=== PATIENT | female | born 1955 | race African-American/Black ===

== ENCOUNTER 2021-04-30 09:37 | Inpatient (IN) | payer MEDICARE ==
[~2021-04-30] VITALS: Ht 160 cm; Wt 68.7 kg
[2021-04-30 09:43] VITALS: BP 122/87
[2021-04-30] MEDS ORDERED: MAPAP500 MG PO (09:54)
[2021-04-30] MEDS ORDERED: DEXAMETHASONE 44 M1 PO (09:56)
[2021-04-30] MEDS ORDERED: SM CALCIUM PO (09:56)
[2021-04-30] MEDS ORDERED: NEURONTIN 300M300 M2 PO (09:57)
[2021-04-30] MEDS ORDERED: MARINOL 2.5 MG2.5 M1 PO (09:57)
[2021-04-30] MEDS ORDERED: HYDROCODON-ACE1 EAC5 PO (09:58)
[2021-04-30] MEDS ORDERED: AGONEAZE 2.5%-1 EACH (09:58)
[2021-04-30] MEDS ORDERED: ONDANSETRON ODT4 MG PO (09:59)
[2021-04-30 10:23] LABS: ABSOLUTE MONOCYTES 0.1 thou/uL (0.0-1.2); WBC 2.4 thou/uL (4.0-11.0)
[2021-04-30 10:25] LABS: ABSOLUTE BASOPHILS 0.1 thou/uL (0.0-0.2); ABSOLUTE LYMPHOCYTES 1.4 thou/uL (0.8-5.3); ABSOLUTE NEUTROPHILS 0.8 thou/uL (1.6-8.1); EOSINOPHILS 1.3 %; HEMATOCRIT 27.2 % (37.0-47.0); LYMPHOCYTES 59.4 %; MCH 31.8 pg (26.0-34.0); MCHC 33.1 g/dL (28.0-37.0); MCV 96.3 fL (80.0-100.0); MONOCYTES 2.4 %; NUCLEATED RBCS 1 /100WBC; PLATELET COUNT* 133 thou/uL (150-400); POLYS 33.9 %; RBC 2.83 mil/uL (4.20-5.00); RDW-CV 24.8 % (10.5-14.5)
[2021-04-30 10:34] LABS: CALCIUM 7.7 mg/dL (8.5-10.1); CREATININE 0.7 mg/dL (0.6-1.3); POTASSIUM 3.4 mmol/L (3.5-5.1)
[2021-04-30 10:48] LABS: TOTAL BILIRUBIN 5.6 mg/dL (<0.1-1.0)
[2021-04-30 11:07] LABS: ANISOCYTOSIS 3+; PLATELET ESTIMATE ADEQUATE; TARGET CELLS 1+
--- NOTE | 2021-04-30 15:40 | EKG ---
[place] [address] ELECTROCARDIOGRAM REPORT Name: SHAE HERNANDEZ Room: [place] [address] ADM IN [facility].#: [id number] Admission: 04/30/21 Attend Phys: Yunior Ivy Discharge: Date of : 53 Date of Service: 04/30/21 1039 Report #: [id number] THIS REPORT FOR: //name// [facility] ED Test Date: 2021-04-30 Test Time: 10:39:32 Pat Name: SHAE HERNANDEZ Department: Room: [facility] Gender: F Medical Radiation Therapist: PB : 1955 Requested By: Skyler High Order Number: [id number] MD: Jack Pal Measurements Intervals [place] Rate: 105 P: 46 AK: 144 QRS: 3 QRSD: 91 T: 108 QT: 422 QTc: 558 Interpretive Statements Sinus tachycardia Nonspecific T abnrm, anterolateral leads Prolonged QT interval No previous ECG available for comparison Electronically Signed On 04-30-2021 15:40:22 CDT by Jack Pal [email or web address] <ELECTRONICALLY SIGNED> By: Jack Pal MD, FACC 04/30/21 1540 1039 1039 Jack Pal MD, [facility] /EPI
[2021-04-30 16:37] LABS: URINE BLOOD TRACE (Negative); URINE CLARITY CLEAR; URINE COLOR YELLOW; URINE GLUCOSE-RANDOM NEGATIVE (Negative); URINE KETONES 1+ (Negative); URINE LEUKOCYTES-REFLEX NEGATIVE (Negative); URINE NITRITE-REFLEX NEGATIVE (Negative); URINE PROTEIN 1+ (Negative); URINE SPECIFIC GRAVITY <= 1.005 (1.005-1.030)
[2021-04-30 16:41] LABS: ICTOTEST (BILI CONFIRMATORY) Positive (Negative); URINE BILIRUBIN 2+ (Negative)
[2021-04-30 16:46] LABS: BACTERIA-REFLEX 1-9 Few /HPF (None Seen); CASTS None Seen /LPF (None Seen); CRYSTALS None Seen /LPF (None Seen); SQUAMOUS >10 Many /LPF (0-3); URINE RBC 0-2 Rare /HPF (0-2); URINE WBC-REFLEX 0-5 Rare /HPF (0-5)
[2021-04-30 17:17] VITALS: BP 124/61
[2021-04-30 21:15] VITALS: BP 118/67
[2021-05-01] VITALS (9 sets, daily range): BP systolic 120–135; BP diastolic 59–82
[2021-05-01 06:27] LABS: ALBUMIN 1.7 g/dL (3.4-5.0); CALCIUM 6.9 mg/dL (8.5-10.1); CREATININE 0.6 mg/dL (0.6-1.3); POTASSIUM 3.4 mmol/L (3.5-5.1); TOTAL BILIRUBIN 4.3 mg/dL (<0.1-1.0); TOTAL PROTEIN 5.2 g/dL (6.4-8.2)
[2021-05-01 06:30] LABS: HEMOGLOBIN 7.9 gm/dL (12.0-15.0)
[2021-05-01 06:35] LABS: HEMATOCRIT 23.6 % (37.0-47.0); MCH 31.9 pg (26.0-34.0); MCHC 33.5 g/dL (28.0-37.0); MCV 95.3 fL (80.0-100.0); MPV 8.4 fl. (7.2-11.1); NUCLEATED RBCS 12 /100WBC; PLATELET COUNT* 115 thou/uL (150-400); RBC 2.48 mil/uL (4.20-5.00); RDW-CV 24.8 % (10.5-14.5)
[2021-05-01 06:42] LABS: WBC 1.3 thou/uL (4.0-11.0)
[2021-05-01 08:18] LABS: ABSOLUTE LYMPHOCYTES 0.5 thou/uL (0.8-5.3); ABSOLUTE MONOCYTES 0.2 thou/uL (0.0-1.2); ABSOLUTE NEUTROPHILS 0.6 thou/uL (1.6-8.1); ANISOCYTOSIS 2+; PLATELET ESTIMATE ADEQUATE; TARGET CELLS 2+
--- NOTE | 2021-05-01 10:53 | NUR ---
MARIA LUISA HOLM, PT'S SISTER HAS PERMISSION TO RECEIVE INFORMATION ABOUT PATIENT.
--- NOTE | 2021-05-01 13:15 | NUR ---
ER PATIENT TO 206 VIA BED TELEPHONE REPORT GIVEN PRIOR TO ARRIVAL PATIENT ORIENTED TO ROOM AND CALLIGHT DENIES PAIN AT THIS TIME ASSUMED PATIENT CARE
--- NOTE | 2021-05-01 16:19 | NUR ---
CM S/W PT WHO INDICATED SHE LIVES HOME WITH . COMPLETED SKILLED STAY AT [facility] ABOUT WEEK AGO, SHE WAS THERE FOR ABOUT A WEEK TO A WEEK AND A HALF. PT HAS NO DMES. PT'S SPOUSE ASSIST PT WITH ADLS. PT INDICATED SHE MAY HAVE HOME HEALTH B/C A "THERAPIST NAME MARIA LUISA" CAME TO THE HOME. PT SISTER WHO WAS AT BEDSIDE STATED SHE DIDNT THINK PT WAS RECEIVING HH, BUT ADVISED CM TO CONTACT PT , [facility] AT [phone].CM ATTEMPTED TO CONTACT [facility], BUT THERE WAS NO ANSWER. CM TO CONT TO FOLLOW
[2021-05-02 04:00] VITALS: BP 139/67
--- NOTE | 2021-05-02 05:36 | NUR ---
PT ALERT AND ORIENTED, SOME NAUSEA OFF AND ON, SCHEDULED ZOFRAN GIVEN. NO PAIN REPORTED. SHE SAID SHE HAD SOME DISCOMFORT IN HER STERNUM AREA LIKE WATER WAS STUCK AFTER DRINKING IT. I HAD HER ELEVATE HER HEAD. SHE HAS USED BEDPAN ALL SHIFT AND NOT GOT UP OUT OF BED. SHE HAS BEEN STEADY SINUS TACH ON MONITOR ALL SHIFT. SHE REPORTS SHE HAS NOT TOLERATED FOOD BUT HAS BEEN OK WITH SIPS OF WATER AND ICE CHIPS. SHE RECEIVED ALL MEDS/ABX/FLUIDS SCHEDULED.
[2021-05-02 12:00] VITALS: BP 123/67
--- NOTE | 2021-05-02 15:23 | NUR ---
CM ATTMEPTED 2X TODAY TO CONTACT PT TO CONFIRM IF PT IS CURRENT WITH ANY HH AGENCIES, THE PT BELIEVES SHE IS BUT COULDNT REMEMBER .
[2021-05-02 16:00] VITALS: BP 120/59
[2021-05-02 16:20] LABS: ABSOLUTE NEUTROPHILS 0.1 thou/uL (1.6-8.1); HEMOGLOBIN 8.2 gm/dL (12.0-15.0); MPV 8.8 fl. (7.2-11.1)
[2021-05-02 16:22] LABS: ABSOLUTE LYMPHOCYTES 1.4 thou/uL (0.8-5.3); ABSOLUTE MONOCYTES 0.3 thou/uL (0.0-1.2); EOSINOPHILS 0.2 %; HEMATOCRIT 24.8 % (37.0-47.0); LYMPHOCYTES 75.9 %; MCH 31.9 pg (26.0-34.0); MCHC 33.1 g/dL (28.0-37.0); MCV 96.4 fL (80.0-100.0); NUCLEATED RBCS 283 /100WBC; PLATELET COUNT* 106 thou/uL (150-400); POLYS 4.9 %; RBC 2.57 mil/uL (4.20-5.00); RDW-CV 25.2 % (10.5-14.5)
[2021-05-02 16:34] LABS: ALBUMIN 1.7 g/dL (3.4-5.0); CALCIUM 6.8 mg/dL (8.5-10.1); CREATININE 0.9 mg/dL (0.6-1.3); POTASSIUM 4.1 mmol/L (3.5-5.1); TOTAL BILIRUBIN 4.1 mg/dL (<0.1-1.0); TOTAL PROTEIN 5.5 g/dL (6.4-8.2)
[2021-05-02 16:37] LABS: WBC 1.8 thou/uL (4.0-11.0)
--- NOTE | 2021-05-02 18:54 | NUR ---
PT HAS BEEN VERY SOMNOLENT TODAY DESPITE HAVING MANY VISITORS. SHE IS ON IVF AND ANTIBIOTICS, SHE HAD ONE DOSE OF PAIN MEDS. SHE DENIES PAIN, NAUSEA FOR THE MOST PART BUT DOES NOT WANT TO ADVANCE DIET DUE TO FEAR OF VOMITING. PT IS WEAK AND USING BEDPAN TO VOID. CRITICAL WBC CALLED TO DR IGLESIAS WITH RETURN CALL, NO ORDERS GIVEN DUE TO EXPECTED LAB VALUE DUE TO CANCER TREATMENT. CALL LIGHT IN REACH, BED ALARM ON FOR SAFETY
[2021-05-03 00:06] VITALS: BP 129/60
[2021-05-03 03:11] LABS: HEMOGLOBIN 7.5 gm/dL (12.0-15.0)
[2021-05-03 03:13] LABS: HEMATOCRIT 22.3 % (37.0-47.0); MCH 32.2 pg (26.0-34.0); MCHC 33.6 g/dL (28.0-37.0); MCV 95.8 fL (80.0-100.0); MPV 8.8 fl. (7.2-11.1); NUCLEATED RBCS 245 /100WBC; PLATELET COUNT* 93 thou/uL (150-400); RBC 2.33 mil/uL (4.20-5.00); RDW-CV 25.1 % (10.5-14.5); WBC 2.2 thou/uL (4.0-11.0)
[2021-05-03 03:34] LABS: ALBUMIN 1.5 g/dL (3.4-5.0); CALCIUM 6.3 mg/dL (8.5-10.1); CREATININE 1.2 mg/dL (0.6-1.3); TOTAL BILIRUBIN 3.9 mg/dL (<0.1-1.0); TOTAL PROTEIN 4.9 g/dL (6.4-8.2)
[2021-05-03 04:08] VITALS: BP 134/60
--- NOTE | 2021-05-03 05:07 | NUR ---
PT ALERT AND ORIENTED, ROOM AIR, UP STANDBY ASSIST (DID NOT GET UP THIS SHIFT) SHE RECEIVED ALL MEDS/FLUIDS/ABX ORDERED. DID NOT REPORT ANY NAUSEA OR PAIN. CONTINUED WITH ICE CHIPS AND SIPS OF WATER. STILL NOT A GOOD APPETITE. SHE WAS SLEEPING MOST OF THE NIGHT. WILL CONTINUE TO MONITOR.
[2021-05-03 07:35] LABS: ABSOLUTE LYMPHOCYTES 1.1 thou/uL (0.8-5.3); ABSOLUTE MONOCYTES 0.2 thou/uL (0.0-1.2); ABSOLUTE NEUTROPHILS 0.9 thou/uL (1.6-8.1); ATYPICAL LYMPHS 2 %; PLATELET ESTIMATE DECREASED
[2021-05-03 07:36] LABS: HYPOCHROMASIA 2+; POLYCHROMASIA Occasional
[2021-05-03 07:37] LABS: ANISOCYTOSIS 3+
[2021-05-03 07:38] LABS: BURR CELLS Occasional; MACROCYTES 2+; TARGET CELLS Occasional
[2021-05-03 07:39] LABS: MICROCYTES Occasional
[2021-05-03 08:00] VITALS: BP 129/57
[2021-05-03 10:43] LABS: MAGNESIUM 1.8 mg/dL (1.8-2.4); PHOSPHORUS* 1.5 mg/dL (2.5-4.9)
[2021-05-03 12:05] VITALS: BP 120/64
--- NOTE | 2021-05-03 12:52 | NUR ---
POC IS FOR PT TO REMAIN HOSPITALIZED OVER THE WEEKEND, SHE HAS NOT PROGRESSED TOWARDS GOALS.
[2021-05-03 16:58] VITALS: BP 146/58
--- NOTE | 2021-05-03 18:50 | NUR ---
ASSUMED CARE OF PT AT 0730. PT A&0X4, COMPLAINED OF GENERALIZED ABDOMINAL PAIN-TREATED WITH PRN DILAUDID WITH COMPLETE RELIEF. TRACING ST ON THE SKIN FORMER. RATE IN THE 110'S. ON RA SAT MID 90'S. DENIES ANY SHORTNESS OF BREATH. LACTIC TRENDING UP, ORDERS RECEIVED FOR NEPHRO CONSULT, SODIUM BICARB TABS AND 1L NC BOLUS. ONCOLOGY HERE TO SEE PT. ORDERS RECEIVED FOR DNR AND TO ADVANCE DIET TOLERATED. AM ASSESSMENT CHARTED. MEDICATIONS PER DEC. PT REPOSITIONS SELF WITH REMINDERS. HOURLY ROUNDING OBSERVED. BED IN LOW POSITION. BED ALARM IN PLACE. FALL PRECAUTIONS IN PLACE. CALL LIGHT WITHIN REACH. WILL CONTINUE PLAN OF CARE.
[2021-05-04 04:38] VITALS: BP 123/53
--- NOTE | 2021-05-04 05:24 | NUR ---
ASSUMED CARE OF PATIENT AT 1930. AT INITIAL ASSESSMENT PATIENT OBSERVED TO BE SHORT OF BREATH WHILE SPEAKING. APPLIED 2L OXYGEN VIA NC AND STOPPED FLUIDS. AT APPOXIMATELY 2200 PATIENT'S FAMILY CALLED UPSET STATING THAT THE PATIENT TOLD THEM SHE WASN'T GOING TO MAKE IT THROUGH THE NOC. ADVISED FAMILY THAT PATIENT VITALS WERE GOOD, NO IMMINENT CONCERNS, AND WOULD UPDATE THEM IF PATIENT STATUS CHANGED. ADMINISTERED PRN PAIN MEDICATION AND PATIENT APPEARED TO REST COMFORTABLY THE REMAINDER OF SHIFT
[2021-05-04 07:30] VITALS: BP 113/44
[2021-05-04 10:26] VITALS: BP 117/53
[2021-05-04 12:00] VITALS: BP 102/49
[2021-05-04 12:32] LABS: BE -17.9 mmol/L (-2 to +3); HEMOGLOBIN 7.5 gm/dL (12.0-15.0); PCO2 VENOUS 18.1 mmHg (41.0-51.0); PO2 VENOUS 133.7 mmHg (35.0-45.0)
[2021-05-04 12:34] LABS: ABSOLUTE BASOPHILS 0.1 thou/uL (0.0-0.2); ABSOLUTE LYMPHOCYTES 2.4 thou/uL (0.8-5.3); ABSOLUTE MONOCYTES 1.2 thou/uL (0.0-1.2); BASOPHILS 2.4 %; EOSINOPHILS 0.5 %; HEMATOCRIT 23.7 % (37.0-47.0); MCH 32.1 pg (26.0-34.0); MCHC 31.8 g/dL (28.0-37.0); MONOCYTES 25.3 %; MPV 9.3 fl. (7.2-11.1); NUCLEATED RBCS 184 /100WBC; PLATELET COUNT* 87 thou/uL (150-400); POLYS 20.8 %; RBC 2.34 mil/uL (4.20-5.00); RDW-CV 25.5 % (10.5-14.5); WBC 4.6 thou/uL (4.0-11.0)
[2021-05-04 12:52] LABS: ALBUMIN 1.4 g/dL (3.4-5.0); CALCIUM 6.8 mg/dL (8.5-10.1); CREATININE 1.8 mg/dL (0.6-1.3); POTASSIUM 5.1 mmol/L (3.5-5.1); TOTAL BILIRUBIN 5.4 mg/dL (<0.1-1.0)
[2021-05-04 16:00] VITALS: BP 110/39
[2021-05-04 17:17] VITALS: BP 103/40
--- NOTE | 2021-05-04 18:39 | NUR ---
ASSUMED CARE OF PT AT 0730. PT A&0X4 UPON BEGINNING OF SHIFT-CONVERSATIONAL, ANXIOUS. NEPHROLOGY HERE TO SEE PT. ORDERS RECEIVED FOR PRN XANAX-GIVEN ALONG WITH DILAUDID FOR PAIN-PT HAS REMAINED SEDATED AND ONLY RESPONSIVE TO STERNAL RUB THIS EVENING. MULTIPLE FAMILY MEMBERS IN AND OUT OF PT ROOM. DR IGLESIAS SPOKE WITH FAMILY IN ROOM AND SPOKE WITH DAUGHTER OVER THE PHONE. . CRITICAL LAB RESULTS CALLED TO DR IGLESIAS-NO ORDERS RECEIVED AT THIS TIME. PT ON 2L NC SAT 100%. TRACING ST/SR ON THE DIGITAL IMAGING SPECIALIST. AM ASSESSMENT CHARTED. MEDICATIONS PER DEC. PT REPOSITIONED EVERY 2 HOURS FOR COMFORT. HOURLY ROUNDING OBSERVED, BED IN LOW POSITION. BED ALARM IN PLACE. FALL PRECAUTIONS IN PLACE. CALL LIGHT WITHIN REACH. WILL CONTINUE PLAN OF CARE.
[2021-05-05] VITALS: BP 71/29
--- NOTE | 2021-05-05 04:39 | NUR ---
AT APPROXIMATELY 0355 PATIENT HR WAS OBSERVED ON MONITOR TO SULEMAN DOWN TO 20-30 BPM. WENT TO ASSESS PATIENT AND OBSERVED AGONAL BREATH. ATTEMPTED TO OBTAIN VS. NO VS DETECTABLE. NO HEARTBEAT AUSCULTATED AND VERIFIED BY SECOND RN AT 0405. NOTIFIED OPERATIONS AND INTELLIGENCE ASSISTANT AND ONCALL PHYSICIAN. ATTEMPTED TO CALL [facility] MULTIPLE TIMES SINCE 409. NO ANSWER. VERIFIED PHONE NUMBER WITH OPERATIONS AND INTELLIGENCE ASSISTANT. SEVERAL OTHER NURSES ATTEMPTED TO CALL [facility] WELL AND NO ANSWER.
--- NOTE | 2021-05-05 06:39 | NUR ---
RECEIVED VO FROM DR.BANNDAY ECHEVERRIA FOR NURSES TO PRONOUNCE PATIENT AND ATTENDING TO SIGN CERTIFICATE.
== END 2021-05-05 07:36 | DRG 871 ==
LOC: M.ERS 09:37 → M.TBA-ER 12:42 → M.2W 05-01 13:19
PROVIDERS: Emergency Medicine Emergency Medical Services; ADMIT Internal Medicine; ATTEND Internal Medicine
DX: A41.9 Sepsis, unspecified organism (principal); E43 Unspecified severe protein-calorie malnutrition; E87.2 Acidosis; C24.0 Malignant neoplasm of extrahepatic bile duct; C78.7 Secondary malignant neoplasm of liver and intrahepatic bile duct; C78.00 Secondary malignant neoplasm of unspecified lung; E87.1 Hypo-osmolality and hyponatremia; E46 Unspecified protein-calorie malnutrition; C50.919 Malignant neoplasm of unspecified site of unspecified female breast; R74.01 Elevation of levels of liver transaminase levels; R09.02 Hypoxemia; G62.9 Polyneuropathy, unspecified; E88.09 Other disorders of plasma-protein metabolism, not elsewhere classified; E83.39 Other disorders of phosphorus metabolism; Z66 Do not resuscitate; Z20.822 Contact with and (suspected) exposure to COVID-19; Z90.710 Acquired absence of both cervix and uterus; Z68.26 Body mass index [BMI] 26.0-26.9, adult; Z79.899 Other long term (current) drug therapy